=== PATIENT | female | born 1995 | race Caucasian/White ===

== ENCOUNTER 2022-05-29 01:37 | Day surgery (SDC) | payer BC, SELFPAY ==
[2022-05-22 11:42] VITALS: BMI 42.8
--- NOTE | 2022-05-22 11:47 | PC.NURSE ---
Report to the Outpatient Waiting Room, entrance under the green pavilion located off [facility], at time 0700 on date 05/29/22. Planned Procedure Time: 0900. Time changes happen often and if your time is changed the preop area will call you the afternoon before. - You and your visitor will be asked to self-screen and do not enter if you have any COVID symptoms. - We encourage only one visitor and NO visitors under age 16 are allowed at this time. Your visitor will receive communication by the phone number that is given day of service. - The patient visitor is requested to social distance or may leave the building when not with patient due to restrictions. - A mask is OPTIONAL within the hospital. Patients may have clear liquids (water, carbonated beverages, clear teas, apple juice) until 3 hours prior to surgery with a maximum of 20 ounces. - No food from midnight until time of surgery Take the following medications with a SIP of water the morning of surgery: LABETALOL Medications to discontinue per physician: VITAMIN Date to take last dose: 05/25/22 Please no make-up, nail belarusian, hairspray, perfume, deodorant, or body powder the day of surgery. No jewelry (including any body piercings) or valuables the day of surgery, leave them at home. Please take a shower or bath the night before, or the morning of, surgery with an antibacterial soap. Wear comfortable, loose fitting clothing. - Jewelry must be removed prior to entering the operating room. Rings and piercings that are not removed may be cut off. - The hospital will not accept responsibility for valuables. - Please leave all valuables, including medications, at home the day of surgery. If you are going home after surgery, a licensed courtesy driver must drive you home. - NO public transportation without another adult. - We recommend that an adult stay with you for 24 hours following discharge. - We also recommend that you do not drive, make important decision, drink alcoholic beverages, or take any drugs that were not prescribed by your health care provider for at least 24 hours after your discharge time. Follow any additional instructions given to you from your surgeon. If you or anyone in your household have experienced Covid symptoms in the past week, please notify your surgeon or the nurse liaison at the phone number below for possible testing. Telephone instructions given to PT - JUDIT VELASCO and asked if any additional questions and then verbalized understanding. Patient advised to call surgeon office or pre surgery nurse liaison [phone] if any additional questions.
[2022-05-29] VITALS (10 sets, daily range): BP systolic 127–154; BP diastolic 65–97; PULSE 63–80; RESP 10–20; TEMP 36.4; O2SAT 95–100
[2022-05-29] MEDS: ACETAMINOPHEN 500 MG TABLET 1000 MG PO (07:34)
[2022-05-29] MEDS: LACTATED RINGERS 1,000 ML 30 ML IV CONT ×2 (07:40→11:27)
[2022-05-29] MEDS: KETOROLAC 15 MG/ML VIAL (*BKC) IV PUSH (07:42)
--- NOTE | 2022-05-29 08:39 | P.PNAN_ITS ---
Anes - Initial Pre Proc Eval Procedure: Operation Date: 05/29/22 09:00 Proposed Procedures p Laparoscopic Left Ovarian Cystectomy, Chromotubation of Oviducts - Thony Stauffer MD Date/Time: 05/29/22 08:39 Surgeon: Thony Stauffer MD Pre Op Diagnosis: cyst left ovary,unexplained infertility Patient Data Age: 26 Gender: F Height: 1.57 m Weight: 104.5 kg Last Vital Signs Temp 97.6 F 05/29/22 06:57 Pulse 73 05/29/22 06:57 Resp 20 05/29/22 06:57 BP 132/65 05/29/22 06:57 Pulse Ox 99 05/29/22 06:57 O2 Del Method Room Air 05/29/22 06:57 Allergies Allergy/AdvReac Type Severity Reaction Status Date / Time No Known Allergies Allergy Verified 05/29/22 07:32 Home Medications Medication Instructions Recorded Confirmed Type labetalol 200 mg tablet 200 mg PO BID 05/22/22 05/29/22 History omeprazole 20 mg tablet,delayed 20 mg PO DAILY 05/22/22 05/29/22 History release prenat.vits,kitty,tdq-kszf-zqjwa 1 tablet PO DAILY 05/22/22 05/29/22 History Patient hx anesthesia problems: none Family hx anesthesia problems: none Results Review: All pre-operative results and documents have been reviewed as part of the pre- operative evaluation. [facility] Social History Social History Smoking status: Never smoker Alcohol intake: never Substance use: never Substance use type: does not use Living arrangements: with family Spiritual care concerns: No Anes - Eval Final PreProcedure Day of Procedure 05/29/22 08:39 Patient weight: morbidly obese Heart: regular rate and rhythm Lungs: clear to auscultation Airway: Mallampati scale class II Neurological: alert and oriented Last oral intake: >/= 8 hours ASA classification: III Emergent: no Anesthetic plan: proceed Anesthesia type and monitoring: general ETT and standard monitoring Results Review: All pre-operative results and documents have been reviewed as part of the pre- operative evaluation. Informed Consent: The patient's anesthetic plan and its attendant risks and benefits were discussed with the patient/family/POA. Questions were solicited and answers provided to the satisfaction of the patient/family/POA.
--- NOTE | 2022-05-29 09:02 | WPDHPUPDATE1 ---
History and Physical Update Update Date/Time: 05/29/22 09:02 History and Physical has been reviewed, including an updated exam of the patient. There are NO changes in the patient's condition. Risks, benefits, and alternatives have been discussed and questions answered. Patient agrees to proceed with procedure.
[2022-05-29] MEDS: METHYLENE BLUE 0.5% INJ 10 ML AMPULE 5 ML IRRIGATION (10:59)
--- NOTE | 2022-05-29 11:34 | W.PM.PROC2 ---
Procedure Note - Detailed Date of Procedure 05/29/22 Pre-op Diagnosis cyst left ovary,unexplained infertility Post-op Diagnosis Same (Dermoid cyst) Procedure Performed laparoscopic left oophorectomy and chromopertubation of the fallopian tubes. Surgeon Thony Stauffer MD Anesthesia General Indications Pelvic pain Findings Patent fallopian tubes. Large left ovarian mass. Very durable containing hair and mucus and very tough tissue like skin. There also appeared to be bone. Description of Procedure The patient was taken to the operating room. She was prepped and draped in the dorsal lithotomy position after induction general anesthesia. A 5 mm incision was made with a scalpel on the abdominal skin in the left upper quadrant of the abdomen. A 5 mm trocar was inserted into the intra-abdominal cavity under direct visualization the scope. In the same fashion a 11 mm left lower quadrant trocar was inserted and a 11 mm infraumbilical trocar was inserted. Left oophorectomy was performed using a LigaSure cautery. Was from the infundibulopelvic ligament and fallopian tube with LigaSure. The ovary and tumor had to be broken into multiple pieces and drained to get into an endobag. There was mucus and very tough durable tissue. There was hair. There was bone like material. Was very difficult to manage. The left lower quadrant incision was expanded to about a 3-4 cm incision. Through this the endobag was brought through in the pieces of the tissue in the bag were brought out through the left lower quadrant trocar site. Copious amounts of irrigation were used to clean up inside the abdomen. Thoroughly irrigated removal of all mucousy tissue and hair could that could be identified. The chromopertubation was performed. A speculum placed in vagina. A ZOEY manipulator is placed in the endometrial cavity using a tenaculum and a diagnostic tip for the ZOEY. The ZOEY tip balloon was inflated. Both tubes were very patent. The ZOEY was removed after deflation of the balloon. The fascia was closed in 0 Vicryl in a running fashion. Skin was closed with subcuticular 4 Monocryl after thorough irrigation of the subcutaneous fat. The pelvis was irrigated. The pneumoperitoneum was reduced. The trocars were removed. Skin was closed with subcuticular 4 micro. The patient's incisions were covered with Dermabond. She was taken recovery room in stable condition. Sponge lap and needle counts were correct x2. Complications No immediate complications Condition Stable Disposition Same day
[2022-05-29] MEDS: ONDANSETRON INJ 4 MG/2 ML VIAL IV PUSH (11:51)
--- NOTE | 2022-05-29 13:20 | SUR.PHASEII ---
delay discharge due to pt c/o nausea but improving after zofran and time. will continue to monitor. VSS
[2022-05-29] MEDS: diphenhydrAMINE HCl INJ 50 MG/ML VIAL 12.5 MG IV PUSH (13:44)
[2022-05-29] MEDS: SCOPOLAMINE 1.5 MG PATCH TRANSDERM (13:54)
== END 2022-05-29 14:20 | disposition home or self-care (01) ==
PROVIDERS: Visit Provider Obstetrics & Gynecology
PROC: (CPT 49320; principal; 2022-05-29 09:00)
DX: D27.1 Benign neoplasm of left ovary (principal); E66.01 Morbid (severe) obesity due to excess calories; Z68.41 Body mass index [BMI] 40.0-44.9, adult
CPT/HCPCS: 58661; 88305; A9270; J0330; J1100; J1200; J1885; J2250; J2270; J2405; J2704; J7030; J7120; Q9968